=== PATIENT | male | born 1950 | race Two or more races ===

== ENCOUNTER → 2021-06-29 | Emergency (ER) | payer OTHER ==
[~2021-06-29] VITALS: Ht 165.1 cm; Wt 67.1 kg
[~2021-06-29] MED LIST: AMLODIPINE-OLM1 EAC3; ATORVASTATIN CA10 MG PO; DUI500 PO; HUMULIN 70100 UNIT/2; ISOSORBIDE DINI30 MG PO; NEURONTIN300 MG; PLAVIX75 MG; ZESTRIL30 MG PO; ZETIA10 MG PO
== END | disposition home or self-care (01) ==
LOC: ER 19:06
DX: L03.115 Cellulitis of right lower limb (principal)